=== PATIENT | female | born 1990 | race Two or more races ===

== ENCOUNTER 2024-04-30 21:58 | Emergency (ER) | payer OTHER ==
[~2024-04-30] VITALS: Ht 157.5 cm; Wt 90.7 kg
[2024-04-30 22:28] VITALS: BP 116/80; O2SAT 97
[2024-04-30] MEDS ORDERED: PROVENTIL S2 MG/5 ML PO (22:28)
[2024-04-30] MEDS ORDERED: METHYLPREDNISOLONE SOD SUCC 125 MG VIAL IV STA (22:44)
[2024-04-30] MEDS ORDERED: IPRATROPIUM BROMIDE 0.5 MG/2.5 ML AMPUL.NEB IH SCH (22:45)
== END 2024-05-01 00:42 | disposition home or self-care (01) ==
LOC: ER 22:01
DX: J45.909 Unspecified asthma, uncomplicated (principal); Z20.822 Contact with and (suspected) exposure to COVID-19; Z88.8 Allergy status to other drugs, medicaments and biological substances
CPT/HCPCS: 36415; 99282; J3490

== ENCOUNTER 2024-05-29 21:01 | Emergency (ER) | payer OTHER ==
[~2024-05-29] VITALS: Ht 162.6 cm; Wt 104.3 kg
[~2024-05-29 21:01] MED LIST: PROVENTIL S2 MG/5 ML PO
[2024-05-29] MEDS ORDERED: IPRATROPIUM/ALBUTEROL SULFATE 3 ML AMPUL.NEB IH SCH (23:00)
[2024-05-29] MEDS ORDERED: BUDESONIDE 0.5 MG/2 ML AMPUL.NEB IH ONE ×2 (23:00→23:30)
[2024-05-29] MEDS ORDERED: METHYLPREDNISOLONE SOD SUCC 125 MG VIAL IV ONE (23:00)
[2024-05-29] MEDS ORDERED: METHYLPREDNISOLONE SOD SUCC 125 MG VIAL ONE (23:10)
[2024-05-29] MEDS ORDERED: MAGNESIUM SULFATE 50% 1,000 MG/2 ML VIAL ONE (23:29)
[2024-05-29] MEDS ORDERED: IPRATROPIUM/ALBUTEROL SULFATE 3 ML AMPUL.NEB IH ONE (23:30)
[2024-05-29] MEDS ORDERED: MAGNESIUM SULFATE IN WATER 50 ML IV ONE (23:30)
[2024-05-29 23:37] LABS: HEMATOCRIT 38.1 % (36.0-45.00); MEAN CELL VOLUME 85.1 fL (80.00-100.00); MEAN CORPUSCULAR HGB CONC 34.1 g/dl (32.0-36.0); PLATELET COUNT 362 K/uL (150-450); RED BLOOD COUNT 4.48 M/uL (4.00-6.00); RED CELL DISTRIBUTION WIDTH 13.3 % (11.5-14.5)
[2024-05-29 23:58] LABS: ALBUMIN 3.5 gm/dL (3.4-5.0); BILIRUBIN TOTAL 0.24 mg/dL (0.3-1.2); CALCIUM 9.4 mg/dL (8.5-10.1); CREATININE SERUM 0.99 mg/dL (0.55-1.02); GFR 64.21; GLOBULINA 3.7 G/DL (2.4-3.5); POTASSIUM 3.94 mEq/L (3.5-5.1); TOTAL PROTEIN 7.2 gm/dL (6.4-8.2)
[2024-05-30 06:19] LABS: ABG PH 7.424 (7.35-7.45); ABG PO2 73.9 mmHg (80-100); ABG pCO2 39.6 mmHg (35-45); BICARBONATE 25.3 mmol/l (23-25); SaO2 95.1 %; Tco2 26.6 mmol/l; allen test SATISFACTORY; o2 21 %; puncture site RADIAL RIGHT
== END 2024-05-30 03:29 | disposition home or self-care (01) ==
LOC: ER 21:04
PROVIDERS: Preventive Medicine Public Health & General Preventive Medicine
DX: J45.901 Unspecified asthma with (acute) exacerbation (principal); Z88.8 Allergy status to other drugs, medicaments and biological substances
CPT/HCPCS: 36415; 82803; 94640; 96365; 99284; J3475; J3490

== ENCOUNTER 2024-06-24 20:34 | Emergency (ER) | payer OTHER ==
[~2024-06-24] VITALS: Ht 157.5 cm; Wt 90.7 kg
[2024-06-24 20:55] VITALS: BP 97/67; O2SAT 99
[2024-06-24] MEDS ORDERED: METHYLPREDNISOLONE SOD SUCC 125 MG VIAL IV STA (22:17)
[2024-06-24] MEDS ORDERED: MAGNESIUM SULFATE IN WATER 4 GM/100 ML PIGGYBACK IV STA (22:18)
[2024-06-24] MEDS ORDERED: BUDESONIDE 0.5 MG/2 ML AMPUL.NEB IH STA (22:18)
[2024-06-24] MEDS ORDERED: IPRATROPIUM/ALBUTEROL SULFATE 3 ML AMPUL.NEB IH STA (22:19)
[2024-06-24] MEDS ORDERED: METHYLPREDNISOLONE SOD SUCC 125 MG VIAL ONE (22:55)
[2024-06-24 23:38] LABS: HEMATOCRIT 39.7 % (36.0-45.00); HEMOGLOBIN 13.5 g/dL (12.0-15.00); MEAN CELL VOLUME 85.2 fL (80.00-100.00); MEAN CORPUSCULAR HEMOGLOBIN 28.9 pg (27.00-32.0); MEAN CORPUSCULAR HGB CONC 33.9 g/dl (32.0-36.0); PLATELET COUNT 405 K/uL (150-450); RED BLOOD COUNT 4.66 M/uL (4.00-6.00); RED CELL DISTRIBUTION WIDTH 13.4 % (11.5-14.5)
[2024-06-25] MEDS ORDERED: IPRATROPIUM/ALBUTEROL SULFATE 3 ML AMPUL.NEB IH ONE ×2 (00:52→02:35)
[2024-06-25] MEDS ORDERED: BUDESONIDE 0.5 MG/2 ML AMPUL.NEB IH ONE (00:52)
[2024-06-25] MEDS ORDERED: GUAIFENESIN 200 MG/10 ML BLIST.PACK PO STA (02:23)
[2024-06-25] MEDS ORDERED: ALBUTEROL SULFATE 3 ML/2.5 MG AMPUL.NEB IH SCH (02:30)
[2024-06-25] MEDS ORDERED: ALBUTEROL2.5 MG/3 M IH (02:32)
[2024-06-25] MEDS ORDERED: SINGULAIR10 MG PO (02:32)
[2024-06-25] MEDS ORDERED: SYMBICORT 16010.2 GM IH (02:32)
[2024-06-25] MEDS ORDERED: ZYNCOF 20-400120 ML PO (02:32)
[2024-06-25] MEDS ORDERED: BUDESONIDE0.5 MG/2 M IH (02:32)
[2024-06-25] MEDS ORDERED: GUAIFENESIN 200 MG/10 ML BLIST.PACK PO ONE (02:38)
== END 2024-06-25 02:57 ==
LOC: ER 20:37
DX: J06.9 Acute upper respiratory infection, unspecified (principal); R05.9 Cough, unspecified; Z20.822 Contact with and (suspected) exposure to COVID-19; Z88.8 Allergy status to other drugs, medicaments and biological substances

== ENCOUNTER 2024-12-22 07:54 | Emergency (ER) | payer OTHER ==
[~2024-12-22] VITALS: Ht 157.5 cm; Wt 117.9 kg
[~2024-12-22 07:54] MED LIST changes: +ALBUTEROL2.5 MG/3 M IH; +BUDESONIDE0.5 MG/2 M IH; +SINGULAIR10 MG PO; +SYMBICORT 16010.2 GM IH; +ZYNCOF 20-400120 ML PO
[2024-12-22] MEDS ORDERED: NORFLEX100MG PO (13:09)
[2024-12-22] MEDS ORDERED: DICLOFENAC SODI75 MG PO (13:09)
[2024-12-22] MEDS ORDERED: KETOROLAC TROMETHAMINE 60 MG VIAL IM ONE (13:15)
[2024-12-22] MEDS ORDERED: DEXAMETHASONE SODIUM PHOSPHATE 4 MG/ML VIAL IM ONE (13:15)
[2024-12-22] MEDS ORDERED: ORPHENADRINE CITRATE 30 MG/ML AMPUL IM ONE (13:15)
== END 2024-12-22 13:50 | disposition home or self-care (01) ==
LOC: ER 07:54
DX: G89.11 Acute pain due to trauma (principal); M79.601 Pain in right arm; M79.605 Pain in left leg; R07.81 Pleurodynia; Z88.9 Allergy status to unspecified drugs, medicaments and biological substances